=== PATIENT | female | born 1950 | race Caucasian/White ===

== ENCOUNTER 2020-05-30 11:40 | Outpatient (CLI) | payer MEDICARE, OTHER ==
[2020-05-30 14:07] LABS: Platelet Count 267 thou/uL (130-400)
[2020-05-30 14:10] LABS: INR-International Normal Ratio 0.9; Prothrombin Time 12.4 sec (12.0-14.7)
[2020-05-30 14:18] LABS: EPI 101 SEC (67-199)
[2020-05-30 14:29] LABS: #Basophils 0.1 thou/uL (0.0-0.2); #Eosinphils 0.1 thou/uL (0.0-0.7); #Monocytes 0.6 thou/uL (0.11-0.59); #Neutrophils 5.2 thou/uL (1.40-6.50); %Basophils 0.8 % (0.0-1.0); %Eosinophils 0.8 % (0.0-10.0); %Lymphocytes 25.5 % (21.0-51.0); %Monocytes 7.8 % (0.0-10.0); %Neutrophils 65.2 % (42.0-75.0); Hemoglobin 13.4 g/dL (12.0-16.0); Mean Corpuscular HGB CONC 31.3 g/dL (32.0-36.0); Mean Corpuscular Hemoglobin 30.6 pg (27.0-31.0); Mean Corpuscular Volume 97.7 fL (78.0-98.0); Mean Platelet Volume 8.2 fL (7.4-10.4); Platelet Count 259 thou/uL (130-400); RBC Distribution Width 11.5 % (11.5-14.5); Red Blood Cell (RBC) Count 4.39 mill/uL (4.20-5.40)
[2020-05-30 15:00] LABS: Anion Gap 11 mmol/L (10-20); BUN (Urea Nitrogen) 12 mg/dL (9.8-20.1); Calc. Creatinine Clearance 0 mL/min (70-130); Calcium 9.4 mg/dL (7.8-10.44); Carbon Dioxide 30 mmol/L (23-31); Chloride 102 mmol/L (98-107); Estimated GFR-MDRD 69; Glucose 96 mg/dL (80-115); Potassium 4.6 mmol/L (3.5-5.1); Sodium 138 mmol/L (136-145)
[2020-05-31 13:37] LABS: SARS-CoV-2 MS2 Positive; SARS-CoV-2 N Gene Negative; SARS-CoV-2 S Gene Negative; SARS-CoV-2 orf1ab Negative
== END 2020-05-30 11:41 | disposition home or self-care (01) ==
LOC: LABBT 11:40
PROVIDERS: ATTEND Urology
DX: Z01.812 Encounter for preprocedural laboratory examination (principal); Z11.59 Encounter for screening for other viral diseases; N20.1 Calculus of ureter
CPT/HCPCS: 80048; 85025; 85576; 85610; 85730; U0003; 87635

== ENCOUNTER 2020-05-31 07:09 | Day surgery (SDC) | payer MEDICARE, OTHER ==
[2020-05-30 12:29] VITALS: BMI 27.8
[2020-05-31] MEDS ORDERED: Iopamidol 50 ML FS ONE (10:21)
--- NOTE | 2020-05-31 10:28 | RAD ---
ABDOMEN 1 VIEW: HISTORY: Preop evaluation. COMPARISON: CT exam 05/22/2020. FINDINGS: Similar appearance to the 6 mm calculus distal left ureter adjacent to the ureterovesicular junction. This is not significantly advanced from the comparison CT exam. Punctate left-sided renal calculi. No dilated loops of large or small bowel. IMPRESSION: Unchanged location of the distal left ureteral stone. POS: HOME
[2020-05-31] MEDS ORDERED: Fentanyl 100 MCG/2 ML VIAL ONE (10:30)
[2020-05-31] MEDS ORDERED: Furosemide 20 MG/2 ML VIAL ONE (11:02)
[2020-05-31] MEDS ORDERED: Dexamethasone 20 MG/5 ML VIAL ONE (11:06)
[2020-05-31] MEDS ORDERED: Ondansetron PF 4 MG/2 ML Vial ONE (11:06)
[2020-05-31] MEDS ORDERED: PROPOFOL 200 MG/20 ML VIAL ONE (11:06)
[2020-05-31] MEDS ORDERED: Lidocaine 1% PF 5 ML VIAL ONE (11:06)
[2020-05-31] MEDS ORDERED: PHENYLEPHRINE-NS 100 MCG/ML 10 ML SYRINGE ONE (11:06)
[2020-05-31] MEDS ORDERED: EPHEDRINE 25 MG/5 ML SYRINGE ONE (11:06)
--- NOTE | 2020-05-31 18:17 | OP ---
DATE OF PROCEDURE: 05/31/2020 PREOPERATIVE DIAGNOSES: Left distal ureteral stone. POSTOPERATIVE DIAGNOSIS: Left distal ureteral stone. PROCEDURES PERFORMED: 1. Left extracorporeal shockwave lithotripsy. 2. Cystoscopy. 3. Left stent. ANESTHETIC: General. ESTIMATED BLOOD LOSS: Not recorded. FINDINGS: She had an 8-mm left distal ureteral stone, that was treated with 3000 shocks at maximum kV level of 5. It did appear to fragment well. It was still quite tight. Some of the fragments had already come out the ureteral orifice. We did a cysto and a retrograde study showed contrast easily going by into a dilated system, but there was still a piece of it, was quite tight, and it required the angled Glidewire to manipulate by the stone. DRAINS PLACED: A 4.8 x 24 double-J stent without a string attached. DESCRIPTION OF PROCEDURE: After obtaining written and verbal consent from the patient and after receiving some IV antibiotics, she was taken to the operating suite. She was placed in the supine position on the treatment table. PlexiPulses were placed on her lower extremities and turned on. She was given a general anesthetic and oral obturator intubation. She was coupled to the lithotripsy unit and the stone was placed in treatment focal point. Shockwave therapy was commenced and relatively quickly brought up to the level 5. Fluoroscopy was used intermittently to document stone fragmentation and to reposition as necessary after 3000 shocks. She was placed in the dorsal lithotomy position and sterilely prepped and draped. Cystoscopy was performed with a 22-[place] sheath. This was well lubricated and passed under direct vision through the female urethra into the urinary bladder. There were stone fragments, a few on the floor of the bladder and some at the left ureteral orifice. We passed a Pollack catheter in and injected contrast, showed some remaining small fragments, still a narrowed ureter in this segment and dilated ureter proximal to it. We could not get a guidewire to go through this regions. We used the angled Glidewire and, manipulated by the stone fragments and up into the renal pelvis. The open-ended catheter was then advanced up to this site. The Glidewire was removed and then the green guidewire was replaced and then a 4.8 x 24 double-J stent was placed over the guidewire and pushed up into place with aid of a pusher, so its proximal end coiled in the renal pelvis and its distal end coiled in the bladder when the wire was removed. The string was not left attached. The patient at this point was taken out of the dorsal lithotomy position, awakened and extubated, and taken by stretcher to the recovery room. Job ID: [id number]
== END 2020-05-31 13:45 | disposition home or self-care (01) ==
LOC: SDC 07:09
PROVIDERS: ATTEND Urology
PROC: 0TF7XZZ Fragmentation in Left Ureter, External Approach (ICD-10-PCS; principal; 2020-05-31)
PROC: 0T778DZ Dilation of Left Ureter with Intraluminal Device, Via Natural or Artificial Opening Endoscopic (ICD-10-PCS; 2020-05-31)
DX: N20.2 Calculus of kidney with calculus of ureter (principal); G43.909 Migraine, unspecified, not intractable, without status migrainosus; E03.9 Hypothyroidism, unspecified; K21.9 Gastro-esophageal reflux disease without esophagitis; Z79.899 Other long term (current) drug therapy; Z88.0 Allergy status to penicillin; Z88.1 Allergy status to other antibiotic agents; Z88.2 Allergy status to sulfonamides
CPT/HCPCS: 74018; J1100; J1940; J2405; J2704; J3010; Q9967

== ENCOUNTER 2020-06-09 11:21 | Outpatient (CLI) | payer MEDICARE, OTHER ==
[2020-06-10 12:46] LABS: SARS-CoV-2 MS2 Positive; SARS-CoV-2 N Gene Negative; SARS-CoV-2 S Gene Negative; SARS-CoV-2 by NAA Not Detected (NotDetected); SARS-CoV-2 orf1ab Negative
== END 2020-06-09 11:22 | disposition home or self-care (01) ==
LOC: LABBT 11:21
PROVIDERS: ATTEND Urology
DX: Z01.812 Encounter for preprocedural laboratory examination (principal); Z11.59 Encounter for screening for other viral diseases; N20.1 Calculus of ureter
CPT/HCPCS: 87635; U0003

== ENCOUNTER 2020-06-12 08:13 | Day surgery (SDC) | payer MEDICARE, OTHER ==
[2020-06-09 15:04] VITALS: BMI 27.8
[2020-06-12] MEDS ORDERED: Sodium Chloride 0.9% 100 ML ONE (09:24)
[2020-06-12] MEDS ORDERED: CEFAZOLIN 1 GM VIAL ONE (09:24)
[2020-06-12] MEDS ORDERED: PHENYLEPHRINE-NS 100 MCG/ML 10 ML SYRINGE ONE (09:34)
[2020-06-12] MEDS ORDERED: Ondansetron PF 4 MG/2 ML Vial ONE (09:34)
[2020-06-12] MEDS ORDERED: PROPOFOL 200 MG/20 ML VIAL ONE (09:34)
[2020-06-12] MEDS ORDERED: Dexamethasone 20 MG/5 ML VIAL ONE (09:34)
[2020-06-12] MEDS ORDERED: Lidocaine 1% PF 5 ML VIAL ONE (09:34)
--- NOTE | 2020-06-12 09:36 | RAD ---
Radiograph abdomen one view: 06/12/2020 HISTORY: 69-year-old female for preoperative clearance. FINDINGS: There is a left ureteral stent. There is a 6 mm calculus alongside the distal portion of the stent, c lose to the UVJ. A few punctate calculi on the order of 2 mm in left renal midpole. Bowel gas pattern is normal. No interval change since 06/09/2020. IMPRESSION: 1.) Left ureteral stent 2) 6 mm calculus close to the left ureterovesical junction 3) no interval change since 06/09/2020 4) mild left nephrolithiasis
[2020-06-12] MEDS ORDERED: Iothalamate Meglumine 60% 50 ML VIAL FS ONE (10:15)
[2020-06-12] MEDS ORDERED: Fentanyl 100 MCG/2 ML VIAL ONE (11:10)
--- NOTE | 2020-06-12 12:43 | RAD ---
Retrograde pyelogram 1 view: 06/12/2020 HISTORY: 69-year-old female with distal left ureteral calculus. FINDINGS: There is contrast material in mildly dilated left minor calyces and in nondilated major calyces and n ondilated renal pelvis. The mild dilation of the minor calyces could be due to the degree of injection pressure. The upper curl although incompletely formed ureteral stent overlies one of the le ft renal upper pole calyces. The lower curl is in the left hemipelvis. IMPRESSION: 1. No evidence of high-grade obstructive uropathy. 2. Left ureteral stent.
--- NOTE | 2020-06-12 12:59 | OP ---
DATE OF PROCEDURE: 06/12/2020 PREOPERATIVE DIAGNOSIS: left distal ureteral stone. POSTOPERATIVE DIAGNOSIS: left distal ureteral stone. PROCEDURES PERFORMED: 1 left ureteroscopy, rigid with laser lithotripsy, retrieval. 2. Stent replacement. ANESTHETIC: General. ESTIMATED BLOOD LOSS: Minimal. FINDINGS: This was a stone that had been treated with shockwave about 10 days ago. She passed some fragments, that were smaller. There was one piece of it, it was probably 3 to 4 mm in size, that we did break up somewhat with the laser and then removed with a Nitinol basket. The other pieces were much, much smaller at great number, then we just lasered to try to disintegrate them, and about 3 of them were basketed together. We sent stone pieces for analysis as she has not had prior ones to check. The stone was imbedded in the intramural ureter. Ureter was very edematous in this region. There was a little flap of ureteral mucosa where the wire went probably a couple of millimeters, uncertain if this was just submucosal into and out through the mucosa in this region or if the stone itself had been impacted enough that it had created this cavity outside of the ureter in this region. Stent replacement was a 4.8 x 24 double-J with a string attached to it. DESCRIPTION OF PROCEDURE: After obtaining written and verbal consent from the patient after receiving 1 g of Ancef, she was taken to the operating suite. She was placed in a supine position on the treatment table. PlexiPulses were placed on the lower extremities and turned on. She was given a general anesthetic and oral obturator intubation. She was placed in the dorsal lithotomy position and sterilely prepped and draped. Cystoscopy was performed with a 22-[place] sheath. The bladder was filled and emptied a number of times, examined with both the 30 and 70- degree lens. The stent was in good position. It was grasped and brought out through the urethral meatus. A guidewire was fed up through it. The stent was removed and discarded. A small caliber graduated rigid ureteroscope was brought in with a video camera and monitor, it was passed through the female urethra into the bladder and up adjacent to the guidewire. The stone was visualized in the intramural ureter. Most of the pieces were quite small. We used a laser fiber to just disintegrate these and let them flush out. There was a one that was a little bit larger that knocked down in size and then basketed and removed. We did one more pass and 2 or 3 smallest were basketed together and these were sent. At this point, there was one very short segment of ureteral mucosa, maybe a couple of millimeters where the wire either gone submucosal or where the true lumen was and the stone had become medially displaced outside of the ureter. We just opened up the small little 2 mm segment with the laser fiber, so that all sprung open and it was all one lumen. We then removed the ureteroscope. We had actually looked all the way up to the region of the UPJ. We saw no other lesions or stones in the ureter. We back-loaded our guidewire through the scope, passed a Pollack catheter up in the renal pelvis, removed the guidewire, injected contrast, filling up the entire collecting system all the way down to the distal ureter. There was no extravasation and no filling defects. The guidewire was replaced and a stent was placed back into position over the guidewire, pushing up in place with aid of a pusher, so its proximal end coiled in the renal pelvis and up towards the upper pole calyceal system and the distal end coiled in the bladder. We did leave a string attached to the stent and we will remove that hopefully in a week in the office. Job ID: [id number]
[2020-06-12] MEDS ORDERED: traMADol HCl 50 MG TAB ONE (13:42)
--- NOTE | 2020-06-15 05:53 | PQF ---
[facility] POST DISCHARGE CLINICAL DOCUMENTATION IMPROVEMENT CLARIFICATION FORM l Todays Date: 06/15/20 l Patients Name TERE DIAZ l l Admit Date 06/12/20 l Disch Date 06/12/20 [facility] [employer] Name Devin Shaikh Email: [email or web address] Cell: [phone] To be completed by [facility]: Present Clinical Indicators - Signs / Symptoms Results and Location in Medical Record [ ] Documentation of: [ ] [ ] Documentation of: [ ] [ ] Documentation of: [ ] [ ] Documentation of: [ ] [ ] Risks [ ] [ ] [ ] Treatment [ ] Ureteral Calculus Query for procedure laterality: Right Op report Left Retrograde Pyelogram, Path and H&P [ ] [ ] To be completed by Physician: APURVA JENKINS The documentation in this patients record requires clarification to ensure coding compliance and accuracy. Check the appropriate box and include in your discharge summary. [ ]left distal ureteral stone. Coreected on op note ___ [ ] [ ] [ ] Please check this box if this does not apply to this patient [ ] Unable to determine [ ] Other diagnosis: Review the following information and exercise your independent professional judgment in responding to the clarification. Based upon the clinical findings, risk factors, and treatment, please clarify if you are treating one of the above probable or suspected diagnoses. Physician Signature: Date Time MTDD
== END 2020-06-12 14:26 | disposition home or self-care (01) ==
LOC: SDC 08:13
PROVIDERS: ATTEND Urology
PROC: 0TC78ZZ Extirpation of Matter from Left Ureter, Via Natural or Artificial Opening Endoscopic (ICD-10-PCS; principal; 2020-06-12)
PROC: 0T778DZ Dilation of Left Ureter with Intraluminal Device, Via Natural or Artificial Opening Endoscopic (ICD-10-PCS; 2020-06-12)
DX: N20.1 Calculus of ureter (principal); K21.9 Gastro-esophageal reflux disease without esophagitis; E03.9 Hypothyroidism, unspecified; Z79.899 Other long term (current) drug therapy; Z88.0 Allergy status to penicillin; Z88.1 Allergy status to other antibiotic agents; Z88.2 Allergy status to sulfonamides
CPT/HCPCS: 74018; 74420; 82365; 88300; J0690; J1100; J2405; J2704; J3010; J3490

== ENCOUNTER 2021-03-16 11:36 | Inpatient (IN) | payer MEDICARE, OTHER ==
[2021-03-16 12:12] LABS: #Eosinphils 0.1 thou/uL (0.0-0.7); #Lymphocytes 1.9 thou/uL (1.20-3.40); #Monocytes 0.6 thou/uL (0.11-0.59); #Neutrophils 5.1 thou/uL (1.40-6.50); %Basophils 0.6 % (0.0-1.0); %Eosinophils 1.7 % (0.0-10.0); %Lymphocytes 24.4 % (21.0-51.0); %Monocytes 8.1 % (0.0-10.0); %Neutrophils 65.3 % (42.0-75.0); Hemoglobin 13.2 g/dL (12.0-16.0); Mean Corpuscular HGB CONC 32.2 g/dL (32.0-36.0); Mean Corpuscular Hemoglobin 30.7 pg (27.0-31.0); Mean Corpuscular Volume 95.4 fL (78.0-98.0); Mean Platelet Volume 7.4 fL (7.4-10.4); Platelet Count 291 thou/uL (130-400); RBC Distribution Width 11.4 % (11.5-14.5); White Blood Cell (WBC) Count 7.8 thou/uL (4.8-10.8)
[2021-03-16 12:30] LABS: Anion Gap 10 mmol/L (10-20); BUN (Urea Nitrogen) 15 mg/dL (9.8-20.1); Calc. Creatinine Clearance 0 mL/min (70-130); Calcium 10.3 mg/dL (7.8-10.44); Carbon Dioxide 30 mmol/L (23-31); Chloride 103 mmol/L (98-107); Glucose 100 mg/dL (80-115); Potassium 4.6 mmol/L (3.5-5.1); Sodium 138 mmol/L (136-145)
[2021-03-16] MEDS ORDERED: Fentanyl 100 MCG/2 ML VIAL ONE (13:32)
[2021-03-16] MEDS ORDERED: Ondansetron PF 4 MG/2 ML Vial ONE (13:32)
[2021-03-16 13:49] LABS: Bilirubin Negative (Negative); Blood, Urine Negative (Negative); Clarity Clear (Clear); Glucose, Urine (Dipstick) Normal (Negative); Ketone, Urine Negative (Negative); Leukocyte Negative Leu/uL (Negative); Nitrite Negative (Negative); Protein, Urine (Dipstick) Negative (Neg-Trace); Urobilinogen Normal mg/dL (Less than 2)
[2021-03-16] MEDS ORDERED: Piperacillin/Tazobactam 3.375 GM VIAL ONE (15:07)
[2021-03-16] MEDS ORDERED: Vancomycin 1 GM/200 ML BAG ONE (15:07)
[2021-03-16] MEDS ORDERED: Iopamidol 370 76% 100 ML VIAL ONE (15:15)
[2021-03-16] MEDS ORDERED: VANCOMYCIN 2 GRAM/400 ML BAG 2 GM in Premix Bag 1 BAG IVPB SCH (15:45)
[2021-03-16] MEDS ORDERED: Melatonin 3 MG TAB PO PRN (15:59)
[2021-03-16] MEDS ORDERED: Lactated Ringer's 1,000 ML IV SCH (16:00)
[2021-03-16] MEDS ORDERED: Morphine 4 MG/ML VIAL SLOW IVP PRN ×2 (16:17→22:05)
[2021-03-16 16:46] VITALS: BMI 29.6
[2021-03-16] MEDS: Piperacillin/Tazobactam 3.375 GM in Sodium Chloride 0.9% 100 ML IVPB SCH (19:34)
[2021-03-16] MEDS: Promethazine 25 MG TAB PO PRN (21:35)
[2021-03-16] MEDS ORDERED: Famotidine 20 MG TAB PO PRN (21:38)
[2021-03-16] MEDS: Lactated Ringer's 1,000 ML IV SCH (21:48)
[2021-03-16] MEDS ORDERED: Pantoprazole 40 MG VIAL IVP SCH (22:15)
[2021-03-16] MEDS ORDERED: Sodium Chloride 0.9% (PF) 10 ML VIAL FS PRN (22:15)
[2021-03-16] MEDS: Morphine 4 MG/ML VIAL SLOW IVP PRN (22:31)
[2021-03-17] MEDS: Piperacillin/Tazobactam 3.375 GM in Sodium Chloride 0.9% 100 ML IVPB SCH ×4 (02:37→20:07)
[2021-03-17] MEDS: Morphine 4 MG/ML VIAL SLOW IVP PRN ×3 (02:40→20:14)
[2021-03-17] MEDS: Lactated Ringer's 1,000 ML IV SCH ×3 (05:30→20:13)
[2021-03-17] MEDS: Pantoprazole 40 MG VIAL IVP SCH (09:37)
[2021-03-17] MEDS: Thyroid 30 MG TAB PO SCH (11:04)
[2021-03-17] MEDS: Enoxaparin Sodium 40 MG/0.4 ML SYRINGE SC SCH (11:08)
[2021-03-17 20:11] LABS: SARS-CoV-2 PCR by NAA Not Detected (NotDetected)
[2021-03-17] MEDS: Promethazine 25 MG TAB PO PRN (20:13)
[2021-03-18] MEDS: Piperacillin/Tazobactam 3.375 GM in Sodium Chloride 0.9% 100 ML IVPB SCH ×4 (03:26→20:47)
[2021-03-18] MEDS: Lactated Ringer's 1,000 ML IV SCH (05:11)
[2021-03-18] MEDS: Thyroid 30 MG TAB PO SCH (08:17)
[2021-03-18] MEDS: Enoxaparin Sodium 40 MG/0.4 ML SYRINGE SC SCH (08:20)
[2021-03-18] MEDS: Pantoprazole 40 MG VIAL IVP SCH (08:20)
[2021-03-19] MEDS: Piperacillin/Tazobactam 3.375 GM in Sodium Chloride 0.9% 100 ML IVPB SCH ×4 (02:44→20:26)
[2021-03-19] MEDS: Enoxaparin Sodium 40 MG/0.4 ML SYRINGE SC SCH (08:07)
[2021-03-19] MEDS: Pantoprazole 40 MG VIAL IVP SCH (08:07)
[2021-03-19] MEDS: Thyroid 30 MG TAB PO SCH (08:07)
[2021-03-19] MEDS: Acetaminophen 325 MG TAB PO PRN ×2 (08:15→12:36)
[2021-03-19] MEDS: Loratadine 10 MG TAB PO SCH (08:54)
[2021-03-19] MEDS: Morphine 4 MG/ML VIAL SLOW IVP PRN (21:36)
[2021-03-20] MEDS: Piperacillin/Tazobactam 3.375 GM in Sodium Chloride 0.9% 100 ML IVPB SCH ×4 (03:06→21:43)
[2021-03-20 06:16] LABS: #Basophils 0.1 thou/uL (0.0-0.2); #Eosinphils 0.2 thou/uL (0.0-0.7); #Lymphocytes 1.9 thou/uL (1.20-3.40); #Monocytes 0.6 thou/uL (0.11-0.59); #Neutrophils 2.4 thou/uL (1.40-6.50); %Basophils 1.2 % (0.0-1.0); %Eosinophils 4.7 % (0.0-10.0); %Lymphocytes 36.8 % (21.0-51.0); %Monocytes 10.6 % (0.0-10.0); %Neutrophils 46.7 % (42.0-75.0); Hemoglobin 11.4 g/dL (12.0-16.0); Mean Corpuscular HGB CONC 33.1 g/dL (32.0-36.0); Mean Corpuscular Hemoglobin 31.4 pg (27.0-31.0); Mean Corpuscular Volume 94.8 fL (78.0-98.0); Mean Platelet Volume 7.5 fL (7.4-10.4); Platelet Count 288 thou/uL (130-400); RBC Distribution Width 11.2 % (11.5-14.5); Red Blood Cell (RBC) Count 3.62 mill/uL (4.20-5.40); White Blood Cell (WBC) Count 5.2 thou/uL (4.8-10.8)
[2021-03-20] MEDS: Pantoprazole 40 MG VIAL IVP SCH (08:35)
[2021-03-20] MEDS: Enoxaparin Sodium 40 MG/0.4 ML SYRINGE SC SCH (08:36)
[2021-03-20] MEDS: Thyroid 30 MG TAB PO SCH (08:36)
[2021-03-20] MEDS: Loratadine 10 MG TAB PO SCH (08:37)
[2021-03-21] MEDS: Piperacillin/Tazobactam 3.375 GM in Sodium Chloride 0.9% 100 ML IVPB SCH ×2 (03:23→08:54)
[2021-03-21 06:26] LABS: #Basophils 0.1 thou/uL (0.0-0.2); #Eosinphils 0.2 thou/uL (0.0-0.7); #Lymphocytes 1.6 thou/uL (1.20-3.40); #Monocytes 0.4 thou/uL (0.11-0.59); #Neutrophils 2.8 thou/uL (1.40-6.50); %Basophils 1.3 % (0.0-1.0); %Lymphocytes 31.6 % (21.0-51.0); %Monocytes 8.3 % (0.0-10.0); %Neutrophils 54.8 % (42.0-75.0); Hemoglobin 11.5 g/dL (12.0-16.0); Mean Corpuscular HGB CONC 31.1 g/dL (32.0-36.0); Mean Corpuscular Hemoglobin 29.5 pg (27.0-31.0); Mean Corpuscular Volume 94.9 fL (78.0-98.0); Mean Platelet Volume 7.6 fL (7.4-10.4); Platelet Count 322 thou/uL (130-400); RBC Distribution Width 11.3 % (11.5-14.5); Red Blood Cell (RBC) Count 3.91 mill/uL (4.20-5.40); White Blood Cell (WBC) Count 5.2 thou/uL (4.8-10.8)
[2021-03-21] MEDS: Thyroid 30 MG TAB PO SCH (08:50)
[2021-03-21] MEDS: Loratadine 10 MG TAB PO SCH (08:55)
[2021-03-21] MEDS: Pantoprazole 40 MG VIAL IVP SCH (08:56)
[2021-03-21] MEDS: Enoxaparin Sodium 40 MG/0.4 ML SYRINGE SC SCH (08:57)
[2021-03-21 09:00] VITALS: TEMP 98.2
[2021-03-21] MEDS ORDERED: Fluticasone Propionate Nasal Spray 16 gm Bottle NASAL SCH (09:00)
[2021-03-21] MEDS ORDERED: Miconazole 2% Cream 30 GM TUBE TOP SCH (09:00)
[2021-03-21] MEDS ORDERED: Miconazole 2% Vaginal Cream 45 GM TUBE TOP SCH (09:00)
[2021-03-21 11:53] VITALS: BP 136/63
[2021-03-21] MEDS ORDERED: metroNIDAZOLE 250 MG TAB PO SCH (15:00)
[2021-03-21] MEDS ORDERED: Cefdinir 300 MG CAP PO SCH (21:00)
== END 2021-03-21 12:30 | disposition home or self-care (01) | DRG 392 ==
LOC: ERS 11:36 → T4-B 15:06
PROVIDERS: ADMIT Family Medicine; ATTEND Family Medicine
DX: K57.20 Diverticulitis of large intestine with perforation and abscess without bleeding (principal); B37.2 Candidiasis of skin and nail; Z20.822 Contact with and (suspected) exposure to COVID-19; E03.9 Hypothyroidism, unspecified; J30.2 Other seasonal allergic rhinitis; R63.0 Anorexia; Z88.1 Allergy status to other antibiotic agents; Z68.29 Body mass index [BMI] 29.0-29.9, adult; Z88.0 Allergy status to penicillin; Z88.2 Allergy status to sulfonamides; Z79.890 Hormone replacement therapy; Z86.010 Personal history of colon polyps; Z87.442 Personal history of urinary calculi
CPT/HCPCS: 36415; 74177; 80048; 81003; 85025; 87086; 87635; 96365; 96375; C9113; J1650; J2270; J2405; J2543; J3010; J3370; J3490; Q0169; Q9967; U0003; U0005

== ENCOUNTER 2021-11-02 14:45 | Emergency (ER) | payer MEDICARE, OTHER ==
[~2021-11-02 14:45] MED LIST: Iopamidol-370 76% 500 ML 1 ML ONE
[2021-11-02 15:17] LABS: #Eosinphils 0.1 thou/uL (0.0-0.7); #Monocytes 0.5 thou/uL (0.11-0.59); %Basophils 0.8 % (0.0-1.0); %Eosinophils 2.6 % (0.0-10.0); %Lymphocytes 34.7 % (21.0-51.0); %Monocytes 8.6 % (0.0-10.0); %Neutrophils 53.4 % (42.0-75.0); Hemoglobin 15.6 g/dL (12.0-16.0); Mean Corpuscular HGB CONC 33.4 g/dL (32.0-36.0); Mean Platelet Volume 7.3 fL (7.4-10.4); Platelet Count 264 thou/uL (130-400); RBC Distribution Width 11.2 % (11.5-14.5); Red Blood Cell (RBC) Count 4.73 mill/uL (4.20-5.40); White Blood Cell (WBC) Count 5.7 thou/uL (4.8-10.8)
[2021-11-02 15:40] LABS: ALT (SGPT) 16 U/L (8-55); AST (SGOT) 16 U/L (5-34); Alkaline Phosphatase 42 U/L (40-110); Anion Gap 7 mmol/L (10-20); BUN (Urea Nitrogen) 13 mg/dL (9.8-20.1); Bilirubin, Total 0.4 mg/dL (0.2-1.2); Calc. Creatinine Clearance 0 mL/min (70-130); Calcium 9.8 mg/dL (7.8-10.44); Carbon Dioxide 29 mmol/L (23-31); Chloride 105 mmol/L (98-107); Globulin 2.6 g/dL (2.4-3.5); Glucose 88 mg/dL (80-115); Potassium 4.2 mmol/L (3.5-5.1); Protein, Total 6.6 g/dL (5.8-8.1); Sodium 137 mmol/L (136-145)
== END 2021-11-02 17:13 | disposition home or self-care (01) ==
LOC: ERS 14:45
DX: R10.32 Left lower quadrant pain (principal); E03.9 Hypothyroidism, unspecified
CPT/HCPCS: 74178; 80053; 83690; 85025; Q9967

== ENCOUNTER 2022-10-14 13:30 | Inpatient (IN) | payer MEDICARE, OTHER ==
[2022-10-16 09:54] VITALS: BMI 28.0
[2022-10-17] MEDS ORDERED: Bupivacaine/Epinephrine 0.25% 30 ML VIAL ONE (06:39)
[2022-10-17] MEDS ORDERED: Lidocaine 1% (PF) 30 ML VIAL ONE (06:39)
[2022-10-17] MEDS ORDERED: fentaNYL PF 100 MCG/2 ML SYRINGE ONE ×2 (06:58→07:03)
[2022-10-17] MEDS ORDERED: Midazolam HCl 2 mg/2 ml Vial ONE (07:03)
[2022-10-17] MEDS ORDERED: cefOXitin 2 GM VIAL ONE (07:20)
[2022-10-17] MEDS ORDERED: Sodium Chloride 0.9% 100 ML ONE (07:20)
[2022-10-17 07:21] LABS: SARS-CoV-2 NAA Rapid Test Not Detected (NotDetected)
[2022-10-17] MEDS ORDERED: Lidocaine 1% MPF 2 ML VIAL ONE (07:26)
[2022-10-17] MEDS ORDERED: NEOSTIGMINE 3 MG/3 ML SYR 3 MG/3 ML SYRINGE ONE (07:45)
[2022-10-17] MEDS ORDERED: Glycopyrrolate 0.2 MG/ML 5 ML SYRINGE ONE ×2 (07:45)
[2022-10-17] MEDS ORDERED: PROPOFOL 200 MG/20 ML VIAL ONE (07:45)
[2022-10-17] MEDS ORDERED: Esmolol 100 MG/10 ML VIAL ONE (07:45)
[2022-10-17] MEDS ORDERED: Dexamethasone 20 MG/5 ML VIAL ONE (07:45)
[2022-10-17] MEDS ORDERED: Rocuronium Bromide 10 MG/ML (10ML VIAL) ONE (07:45)
[2022-10-17] MEDS ORDERED: Ondansetron PF 4 MG/2 ML Vial ONE (07:45)
[2022-10-17] MEDS ORDERED: Phenylephrine 10 MG/ML VIAL ONE (07:45)
[2022-10-17] MEDS ORDERED: diphenhydrAMINE 50 MG/ML VIAL ONE (07:45)
[2022-10-17] MEDS ORDERED: Meperidine HCl/PF 25 MG/ML VIAL ONE (09:55)
[2022-10-17] MEDS ORDERED: Communication Order-Pharmacy FS SCH (10:00)
[2022-10-17] MEDS ORDERED: Promethazine HCl 25 MG/ML VIAL IVPB PRN (10:00)
[2022-10-17] MEDS ORDERED: diphenhydrAMINE 25 MG CAP PO PRN (10:00)
[2022-10-17] MEDS ORDERED: diphenhydrAMINE 50 MG/ML VIAL IM PRN (10:00)
[2022-10-17] MEDS ORDERED: Naloxone HCl 0.4 mg/ml Vial IV PRN (10:00)
[2022-10-17] MEDS ORDERED: FENTANYL 500 MCG/10 ML VIAL 2,000 MCG in Sodium Chloride 0.9% 60 ML IV PRN (10:00)
[2022-10-17] MEDS ORDERED: Meperidine HCl/PF 25 MG/ML VIAL SLOW IVP PRN (10:00)
[2022-10-17] MEDS ORDERED: Promethazine HCl 25 MG/ML VIAL IM PRN ×3 (10:00→10:20)
[2022-10-17] MEDS ORDERED: Zolpidem Tartrate 5 MG TAB PO PRN (10:00)
[2022-10-17] MEDS ORDERED: Ondansetron PF 4 MG/2 ML Vial IVP PRN ×2 (10:00→10:20)
[2022-10-17] MEDS ORDERED: diphenhydrAMINE 50 MG/ML VIAL IVP PRN (10:00)
[2022-10-17] MEDS ORDERED: Ondansetron HCl/PF 4 MG/2 ML Vial IVP PRN (10:00)
[2022-10-17] MEDS ORDERED: FENTANYL 50 MCG/ML 1 ML VIAL ONE (10:07)
[2022-10-17] MEDS ORDERED: Fluticasone Propionate Nasal Spray 16 gm Bottle NASAL PRN (10:20)
[2022-10-17] MEDS ORDERED: hydrALAZINE 20 MG/ML VIAL SLOW IVP PRN (10:20)
[2022-10-17] MEDS ORDERED: D5 1/2 NS w/20 mEq KCL 1,000 ML ONE (10:28)
[2022-10-17] MEDS ORDERED: Fentanyl CADD 100 ML IVPB SCH (10:30)
[2022-10-17] MEDS: D5 1/2 NS w/20 mEq KCL 1,000 ML IV SCH ×2 (15:01→21:11)
[2022-10-17] MEDS: cefOXitin 2 GM in Sodium Chloride 0.9% 100 ML IVPB SCH ×2 (15:01→21:10)
[2022-10-17] MEDS: Estradiol 1 MG TAB PO SCH (21:11)
[2022-10-17] MEDS: Famotidine/PF 20 mg/2ml Vial SLOW IVP SCH (21:11)
[2022-10-17] MEDS: Famotidine 20 MG TAB PO SCH (21:38)
[2022-10-18 05:42] LABS: #Lymphocytes 1.8 thou/uL (1.20-3.40); #Monocytes 0.7 thou/uL (0.11-0.59); #Neutrophils 4.3 thou/uL (1.40-6.50); %Basophils 0.4 % (0.0-1.0); %Eosinophils 0.5 % (0.0-10.0); %Monocytes 10.4 % (0.0-10.0); %Neutrophils 62.6 % (42.0-75.0); Mean Corpuscular HGB CONC 32.1 g/dL (32.0-36.0); Mean Corpuscular Hemoglobin 32.5 pg (27.0-31.0); Mean Platelet Volume 7.2 fL (7.4-10.4); Platelet Count 270 10x3/uL (130-400); RBC Distribution Width 11.7 % (11.5-14.5); Red Blood Cell (RBC) Count 3.99 mill/uL (4.20-5.40); White Blood Cell (WBC) Count 6.9 10x3/uL (4.8-10.8)
[2022-10-18 06:14] LABS: Anion Gap 8 mmol/L (10-20); BUN (Urea Nitrogen) 6 mg/dL (9.8-20.1); Calc. Creatinine Clearance 93 mL/min (70-130); Calcium 8.2 mg/dL (7.8-10.44); Carbon Dioxide 24 mmol/L (23-31); Chloride 107 mmol/L (98-107); Estimated GFR 90; Glucose 120 mg/dL (80-115); Potassium 3.9 mmol/L (3.5-5.1); Sodium 135 mmol/L (136-145)
[2022-10-18] MEDS: HYDROcodone/Acetaminophen 7.5/325 mg Tablet PO PRN ×4 (08:37→21:33)
[2022-10-18] MEDS: Enoxaparin Sodium 40 MG/0.4 ML SYRINGE SC SCH (08:38)
[2022-10-18] MEDS: Famotidine 20 MG TAB PO SCH ×2 (08:38→21:33)
[2022-10-18] MEDS: Famotidine/PF 20 mg/2ml Vial SLOW IVP SCH ×2 (08:39→22:07)
[2022-10-18] MEDS ORDERED: D5 1/2 NS w/20 mEq KCL 1,000 ML IV SCH (09:23)
[2022-10-18] MEDS: Thyroid 30 MG TAB PO SCH (09:47)
[2022-10-18] MEDS: Estradiol 1 MG TAB PO SCH (21:29)
[2022-10-19] MEDS: HYDROcodone/Acetaminophen 7.5/325 mg Tablet PO PRN ×4 (04:12→20:27)
[2022-10-19] MEDS: Famotidine/PF 20 mg/2ml Vial SLOW IVP SCH (08:28)
[2022-10-19] MEDS: Enoxaparin Sodium 40 MG/0.4 ML SYRINGE SC SCH (08:31)
[2022-10-19] MEDS: Thyroid 30 MG TAB PO SCH (08:32)
[2022-10-19] MEDS: Famotidine 20 MG TAB PO SCH ×2 (08:32→20:28)
[2022-10-20] MEDS: Famotidine/PF 20 mg/2ml Vial SLOW IVP SCH ×2 (01:06→08:14)
[2022-10-20] MEDS: Estradiol 1 MG TAB PO SCH (01:06)
[2022-10-20] MEDS: HYDROcodone/Acetaminophen 7.5/325 mg Tablet PO PRN (04:13)
[2022-10-20] MEDS: Thyroid 30 MG TAB PO SCH (08:14)
[2022-10-20] MEDS: Enoxaparin Sodium 40 MG/0.4 ML SYRINGE SC SCH (08:15)
[2022-10-20] MEDS: Famotidine 20 MG TAB PO SCH (08:15)
[2022-10-20 09:05] VITALS: BP 144/84; TEMP 98.3
== END 2022-10-20 10:20 | disposition home or self-care (01) | DRG 331 ==
LOC: SURG A 10-17 06:06 → SURG B 10-17 11:30
PROVIDERS: ADMIT Surgery; ATTEND Surgery
PROC: 0DTN0ZZ Resection of Sigmoid Colon, Open Approach (ICD-10-PCS; principal; 2022-10-17)
PROC: 0DJD4ZZ Inspection of Lower Intestinal Tract, Percutaneous Endoscopic Approach (ICD-10-PCS; 2022-10-17)
PROC: 3E0T3BZ Introduction of Anesthetic Agent into Peripheral Nerves and Plexi, Percutaneous Approach (ICD-10-PCS; 2022-10-17)
DX: K57.32 Diverticulitis of large intestine without perforation or abscess without bleeding (principal); F17.210 Nicotine dependence, cigarettes, uncomplicated; Z20.822 Contact with and (suspected) exposure to COVID-19; Z53.31 Laparoscopic surgical procedure converted to open procedure; Z79.899 Other long term (current) drug therapy; Z90.89 Acquired absence of other organs; Z98.51 Tubal ligation status; Z88.1 Allergy status to other antibiotic agents; Z88.0 Allergy status to penicillin; Z88.2 Allergy status to sulfonamides
CPT/HCPCS: 36415; 36416; 80048; 85025; 88307; A4649; J0694; J1100; J1200; J1650; J2001; J2175; J2250; J2370; J2405; J2704; J3010; J3480; J3490; S0028; U0002

== ENCOUNTER 2024-09-04 13:50 | Emergency (ER) | payer MEDICARE, OTHER ==
[~2024-09-04 13:50] MED LIST changes: -Iopamidol-370 76% 500 ML 1 ML ONE; +Iopamidol-370 76% 500 ML MDV (1 ML CHARGE) ONE
[2024-09-04 14:28] LABS: #Basophils 0.05 10x3/uL (0.0-0.2); %Basophils 0.9 % (0.0-1.0); %Eosinophils 1.2 % (0.0-10.0); %Lymphocytes 27.3 % (21.0-51.0); %Monocytes 8.6 % (0.0-10.0); %Neutrophils 61.8 % (42.0-75.0); Hematocrit 44.1 % (36.0-47.0); Hemoglobin 14.1 g/dL (12.0-16.0); Mean Corpuscular Hemoglobin 28.8 pg (27.0-31.0); Mean Platelet Volume 9.5 fL (7.4-10.4); Platelet Count 357 10x3/uL (130-400); RBC Distribution Width 15.7 % (11.5-14.5)
[2024-09-04 14:46] LABS: ALT (SGPT) 18 U/L (8-55); AST (SGOT) 19 U/L (5-34); Albumin 3.9 g/dL (3.4-4.8); Alkaline Phosphatase 52 U/L (40-110); Anion Gap 13 mmol/L (10-20); BUN (Urea Nitrogen) 14 mg/dL (9.8-20.1); Bilirubin, Total 0.5 mg/dL (0.2-1.2); Calc. Creatinine Clearance 0 mL/min (70-130); Carbon Dioxide 22 mmol/L (23-31); Chloride 107 mmol/L (98-107); Estimated GFR 79; Globulin 2.5 g/dL (2.4-3.5); Glucose 94 mg/dL (83-110); Lipase 48 U/L (8-78); Potassium 4.6 mmol/L (3.5-5.1); Protein, Total 6.4 g/dL (5.8-8.1); Sodium 137 mmol/L (136-145)
[2024-09-04 14:56] LABS: Bacteria/HPF None Seen HPF (None Seen); Bilirubin Negative (Negative); Blood, Urine Negative (Negative); CAUTI Indications for Culture Pelvic or flank pain; Clarity Clear (Clear); Glucose, Urine (Dipstick) Normal (Negative); Ketone, Urine Negative (Negative); Leukocyte Negative Leu/uL (Negative); Nitrite Negative (Negative); Protein, Urine (Dipstick) Negative (Neg-Trace); RBC/HPF 0-3 HPF (0-3); Specific Gravity, Urine 1.013 (1.002-1.036); Squamous Epithelial 0-3 HPF (0-3); Urobilinogen Normal mg/dL (Less than 2); WBC/HPF 0-3 HPF (0-3); pH, Urine 6.5 (5.0-9.0)
[2024-09-04 15:10] LABS: Urine Culture Reflex No No
== END 2024-09-04 17:27 | disposition home or self-care (01) ==
LOC: ERS 13:50
DX: R10.30 Lower abdominal pain, unspecified (principal); Z87.891 Personal history of nicotine dependence
CPT/HCPCS: 74177; 80053; 81001; 83605; 83690; 85025; 99284; Q9967; 36415